=== PATIENT | male | born 1980 | race Caucasian/White ===

== ENCOUNTER → 2021-03-01 14:08 | Outpatient (CLI) | payer OTHER, SELFPAY ==
--- NOTE | 2021-03-01 14:12 | DI.RAD.S_ITS ---
PROCEDURE: XR LUMBAR SPINE 2-3V INDICATIONS: PAIN IN NECK AND BACK TECHNIQUE: 3 views of the lumbar spine were acquired. COMPARISON: None. FINDINGS: Bones: No acute fracture. Anatomic alignment. Minimal narrowing of the L3-L4 disc space otherwise the lumbar disc spaces remain preserved. Mild levocurvature. Soft tissues: Overlying bowel gas pattern is normal. No suspicious soft tissue calcifications. IMPRESSION: Minimal lumbar spondylosis. Mild levocurvature Dictated by: Calvin Reyes M.D. on 03/01/2021 at 15:28 Approved by: Calvin Reyes M.D. on 03/01/2021 at 15:29
--- NOTE | 2021-03-01 14:12 | DI.RAD.S_ITS ---
PROCEDURE: XR CERVICAL SPINE 2V OR 3V INDICATIONS: PAIN IN NECK AND BACK TECHNIQUE: 2 view(s) of the cervical spine were acquired. COMPARISON: None. FINDINGS: Bones: No fractures or dislocations to the C7 level. The lateral masses of C1 appear intact on the odontoid view. No suspicious bony lesions. There is mild degenerative disc disease at C4-C5 and C6-C7. Soft tissues: No prevertebral soft tissue swelling. IMPRESSION: Mild degenerative disc disease at C4-C5 and C6-C7. Dictated by: Emiliano Mi M.D. on 03/01/2021 at 17:46 Approved by: Emiliano iM M.D. on 03/01/2021 at 20:15
--- NOTE | 2021-03-01 14:12 | DI.RAD.S_ITS ---
PROCEDURE: XR THORACIC SPINE 2V INDICATIONS: PAIN IN NECK AND BACK TECHNIQUE: Two views of the thoracic spine were acquired. COMPARISON: None. FINDINGS: Bones: No fractures or dislocations. No suspicious bony lesions. 12 pairs of ribs are noted, additional rudimentary ribs are present at L1. Very mild reverse S scoliosis. No visible vertebral body fractures or significant disc height loss. Soft tissues: No paravertebral stripe thickening. IMPRESSION: Mild reverse S thoracic scoliosis without significant vertebral body anomaly or disc degeneration. This may be secondary to muscle spasm. Dictated by: Jacklyn Daugherty M.D. on 03/01/2021 at 22:15 Approved by: Jacklyn Daugherty M.D. on 03/01/2021 at 22:19
== END ==
PROVIDERS: Referring Provider Chiropractor; Visit Provider Chiropractor
DX: M99.01 Segmental and somatic dysfunction of cervical region (principal); M99.02 Segmental and somatic dysfunction of thoracic region; M99.03 Segmental and somatic dysfunction of lumbar region; M99.04 Segmental and somatic dysfunction of sacral region; M99.05 Segmental and somatic dysfunction of pelvic region; M54.6 Pain in thoracic spine; M54.5 Low back pain; M47.816 Spondylosis without myelopathy or radiculopathy, lumbar region; M50.320 Other cervical disc degeneration, mid-cervical region, unspecified level
CPT/HCPCS: 72040; 72070; 72100